=== PATIENT | male | born 1965 | race Caucasian/White ===

== ENCOUNTER 2019-06-26 00:54 | Emergency (ER) | payer MEDICAID ==
[~2019-06-26] VITALS: Ht 177.8 cm; Wt 129.5 kg
[2019-06-26] MEDS ORDERED: ketorolac trometh inj. 60 MG/2 ML VIAL IM ONE (01:15)
[2019-06-26 01:34] VITALS: BP 153/77
== END 2019-06-26 01:39 | disposition home or self-care (01) ==
LOC: ER 00:54
DX: M25.561 Pain in right knee (principal); M25.562 Pain in left knee
CPT/HCPCS: 96372; 99283; J1885